=== PATIENT | female | born 1975 | race Caucasian/White ===

== ENCOUNTER 2016-05-08 11:35 | Observation (INO) | payer OTHER ==
[~2016-05-08] VITALS: Ht 165.1 cm; Wt 154.0 kg
[2016-05-08] VITALS (26 sets, daily range): BP systolic 93–151; BP diastolic 36–92; PULSE 64–100; RESP 12–29; Ht 165.1 cm; Wt 154.0 kg
[2016-05-08] MEDS ORDERED: CEFAZOLIN 2 GM/50 ML (PMX) 50 ML IVPB ONE (13:30)
[2016-05-08] MEDS ORDERED: SOD CHLORIDE 0.9% 1,000 ML IV ONE (13:30)
[2016-05-08] MEDS ORDERED: METF500T4 PO (14:13)
[2016-05-08] MEDS ORDERED: IBUP100O10 PO (14:13)
[2016-05-08] MEDS ORDERED: GABA300C16 PO (14:13)
[2016-05-08] MEDS ORDERED: HYDR-3027 PO (14:16)
[2016-05-08] MEDS ORDERED: BUPIVACAINE 0.25% (MPF) 30 ML INJ ONE (14:57)
[2016-05-08] MEDS ORDERED: MIDAZOLAM 1 MG/ML 2 ML INJ ONE (15:05)
[2016-05-08] MEDS ORDERED: PROPOFOL 40 ML ONE (15:13)
[2016-05-08] MEDS ORDERED: GLYCOPYRROLATE 0.4 MG INJ ONE (15:13)
[2016-05-08] MEDS ORDERED: ROCURONIUM 50 MG INJ ONE (15:13)
[2016-05-08] MEDS ORDERED: LIDOCAINE 2% (SDV) 5 ML INJ ONE (15:13)
[2016-05-08] MEDS ORDERED: NEOSTIGMINE 3 MG/3 ML SYRINGE ONE (15:13)
[2016-05-08] MEDS ORDERED: MEPERIDINE 25 MG INJ IV PRN (15:30)
[2016-05-08] MEDS ORDERED: DIPHENHYDRAMINE 50 MG INJ IV PRN (15:30)
[2016-05-08] MEDS ORDERED: FENTAnyl 50 MCG/ML VIAL IV PRN (15:30)
[2016-05-08] MEDS ORDERED: morphine (1 MG/ML) 10ML SYRINGE IV PRN (15:30)
[2016-05-08] MEDS ORDERED: ONDANSETRON 4 MG INJ IV PRN (15:30)
[2016-05-08] MEDS ORDERED: CEFAZOLIN 1 GM INJ ONE (16:14)
[2016-05-08] MEDS ORDERED: ONDANSETRON 4 MG INJ ONE (16:15)
[2016-05-08] MEDS: morphine (1 MG/ML) 10ML SYRINGE IV PRN ×4 (16:31→17:00)
[2016-05-08] MEDS: CEFAZOLIN 2 GM/50 ML (PMX) 50 ML IVPB SCH ×2 (16:54→23:18)
[2016-05-08 17:26] LABS: ADD SCAN DIFF NO
[2016-05-08 17:29] LABS: BASOPHILS % 0.3 % (0.0-2.0); EOSINOPHILS # 0.2 10^3/ul (0.0-0.5); HEMOGLOBIN 12.7 g/dl (12.0-16.0); LYMPHOCYTES # 4.2 10^3/ul (0.8-2.9); LYMPHOCYTES % 27.1 % (15.0-51.0); MEAN CORPUSCULAR HEMOGLOBIN 28.6 pg (29.0-33.0); MEAN CORPUSCULAR VOLUME 92.3 fl (82.0-101.0); MONOCYTE # 0.8 10^3/ul (0.3-0.9); MONOCYTES % 5.2 % (0.0-11.0); NEUTROPHIL # 10.3 10^3/ul (1.6-7.5); PLATELET COUNT 270 10^3/UL (140-415); RED BLOOD COUNT 4.44 10^6/ul (4.20-5.40); RED CELL DISTRIBUTION WIDTH 13.5 % (11.5-14.5); WHITE BLOOD COUNT 15.6 10^3/ul (4.8-10.8)
[2016-05-08 17:46] LABS: ALBUMIN 3.7 g/dl (3.3-4.9)
[2016-05-08 17:49] LABS: ALBUMIN/GLOBULIN RATIO 1.19; TOTAL PROTEIN 6.8 g/dl (6.1-8.1)
[2016-05-08 17:50] LABS: POTASSIUM 3.8 mmol/L (3.5-5.1)
[2016-05-08 17:57] LABS: CALCIUM 8.5 mg/dl (8.4-10.2)
[2016-05-08] MEDS ORDERED: ACETAMINOPHEN 325 MG TAB PO PRN (18:00)
[2016-05-08 18:05] LABS: CREATININE 0.67 mg/dl (0.44-1.00)
--- NOTE | 2016-05-08 18:59 | OPR ---
DATE OF OPERATION: 05/08/2016 INDICATION: This is a 40-year-old female presenting and symptomatic gallstones. She requests surgi stephanie excision. Risks, alternatives, benefits, and personnel were discussed with the patient. The alejandra chand expressed understanding and consents to the operation. PREOPERATIVE DIAGNOSIS: Symptomatic gallstones. POSTOPERATIVE DIAGNOSIS: Symptomatic gallstones. OPERATION: Laparoscopic cholecystectomy. SURGEON: Alejandro Barbour MD SHIP RIGGER APPRENTICE: Barney Rodriguez MD SPECIMENS: Gallbladder. COMPLICATIONS: None. ANESTHESIA: General. PROCEDURE: The patient was taken to the OR and prepped and draped in usual sterile fashion. Surgic al timeout was performed. IV antibiotics were given. Supraumbilical midline incision was made with a 15 blade. Dissection cautery was carried down to the fascia. The 0 Vicryl stay sutures were jessica cassie on either side of the midline. Midline opened with cautery. Balloon Luna trocar was introduc ed. Pneumoperitoneum established. Midepigastric 12 mm optical trocar. Right upper quadrant, right upper flank 5 mm optical trocars are placed under direct visualization. There were some adhesions to the gallbladder, which was taken down bluntly. The gallbladder was intrahepatic. Dome down appr oach was taken down until the cystic duct and artery were identified. Three fires of the [address] [place] vascular stapler were used to get across the cystic duct. There was good hemostasis. Additional c lips were placed for reinforcement. Gallbladder was taken off the gallbladder bed. There was minim al spillage. Suction irrigation was used. There was good hemostasis. Additional SNoW and Surgicel were placed into the gallbladder fossa due to the large raw surface. Gallbladder was retrieved usi ng EndoCatch bag. Ports were removed under direct visualization. Stay sutures were tied down. Ski n was closed using skin shashi. Local anesthesia was injected. Dry dressings were applied. Dictated By: ALEJANDRO BARBOUR MD SB/NTS Conf#: [id number] DID#: [id number] CC: SIS ARORA MD;*EndCC*
[2016-05-08] MEDS: HYDROCODONE/APAP (5/325) TAB PO PRN (20:16)
[2016-05-08] MEDS: LACTATED RINGER'S 1,000 ML IV SCH (20:16)
--- NOTE | 2016-05-08 20:52 | HP ---
DATE OF ADMISSION: 05/08/2016 CHIEF COMPLAINT AND HISTORY OF PRESENT ILLNESS: The patient is a 40-year-old female with history o f recurrent right upper quadrant pain, was seen by Dr. Capps as an outpatient. The patient underwent the abdomen on 04/16/2016, which revealed cholelithiasis and probable hepatic steatosis. The patient is morbidly obese and the patient did have a history of recurrent right upper quadrant pain and brought into the hospital today and underwent laparoscopic cholecystectomy. The patient did hav e significant postoperative pain and is being admitted for further evaluation and management. The p atient denied any chest pain. No reported shortness of breath. No reported vomiting. The patient was slightly nauseated, but no ____, no leg pain, or rash or leg edema. No numbness, tingling, or w eakness in any extremity. REVIEW OF SYSTEMS: Other than postoperative pain, the rest of review of systems was unremarkable. ALLERGIES: THE PATIENT IS ALLERGIC TO BACTRIM. FAMILY HISTORY: Paternal grandfather had lung cancer and father is diabetic. PAST SURGICAL HISTORY: The patient is status post left knee arthroscopic surgery and also C-spine s urgery. PAST MEDICAL HISTORY: Significant for diet-controlled diabetes. As mentioned, the patient is morbi dly obese. The patient's last recorded weight is 346 pounds. PHYSICAL EXAMINATION: GENERAL: The patient is conscious, awake, alert. VITAL SIGNS: Temperature 99.2, pulse 92, respirations 20, blood pressure 140/57, O2 saturation 94% on room air. HEENT: Conjunctivae and lids are normal. Oropharynx clear. NECK: Supple. No mass, no thyromegaly. CHEST: Fairly clear. CARDIOVASCULAR: S1, S2 normal. No murmur. ABDOMEN: The patient is status post laparoscopic cholecystectomy. EXTREMITIES: No leg edema. Pedal pulses palpable. SKIN: Without acute rash. NEUROLOGIC: The patient is awake, follows simple commands. LABORATORY DATA: WBC 15.6, hemoglobin 12.7, platelet 270. Chemistry is pending. Glucose 91. The preop chemistry revealed sodium 141, potassium 4.5, BUN 22, creatinine 0.7, glucose 94. IMPRESSION: 1. Symptomatic cholelithiasis, status post laparoscopic cholecystectomy. 2. Diet-controlled diabetes. 3. Morbid obesity. PLAN: 1. Patient admitted on medical floor. Patient will be started on clear liquid diet, which will be advanced as tolerated. Patient will be given IV fluid and will be given Tylenol, morphine and [place] for pain control based on severity of the pain. 2. Will start Lovenox for tomorrow for DVT prophylaxis. Meanwhile, continue SCD. 3. Will also encourage use of incentive spirometry. Further recommendations will depend on patient's hospital course. We will do followup labs. Dictated By: SIS BRADLEY/KATHY Conf#: [id number] DID#: [id number]
[2016-05-09] MEDS: HYDROCODONE/APAP (5/325) TAB PO PRN ×3 (01:56→19:02)
[2016-05-09] MEDS: LACTATED RINGER'S 1,000 ML IV SCH ×2 (02:18→08:25)
[2016-05-09] MEDS: morphine 2 MG INJ IV PRN ×4 (04:09→13:43)
[2016-05-09 05:00] VITALS: BP 148/70; PULSE 81; RESP 19
[2016-05-09 05:03] LABS: ADD SCAN DIFF NO
[2016-05-09 05:14] LABS: BASOPHILS % 0.2 % (0.0-2.0); EOSINOPHILS % 0.1 % (0.0-7.0); HEMATOCRIT 39.2 % (37.0-47.0); HEMOGLOBIN 12.5 g/dl (12.0-16.0); LYMPHOCYTES # 2.3 10^3/ul (0.8-2.9); LYMPHOCYTES % 17.2 % (15.0-51.0); MEAN CORPUSCULAR HEMOGLOBIN 28.9 pg (29.0-33.0); MEAN CORPUSCULAR HGB CONC 31.9 g/dl (32.0-37.0); MEAN CORPUSCULAR VOLUME 90.7 fl (82.0-101.0); MEAN PLATELET VOLUME 9.7 fl (7.4-10.4); MONOCYTE # 0.7 10^3/ul (0.3-0.9); MONOCYTES % 5.4 % (0.0-11.0); NEUTROPHIL # 10.1 10^3/ul (1.6-7.5); NEUTROPHILS % 76.6 % (39.0-77.0); PLATELET COUNT 290 10^3/UL (140-415); RED BLOOD COUNT 4.32 10^6/ul (4.20-5.40); RED CELL DISTRIBUTION WIDTH 13.3 % (11.5-14.5); WHITE BLOOD COUNT 13.2 10^3/ul (4.8-10.8)
[2016-05-09 05:36] LABS: ALBUMIN 3.8 g/dl (3.3-4.9); BILIRUBIN,INDIRECT 0.3 mg/dl (0-1.1); BILIRUBIN,TOTAL 0.3 mg/dl (0.2-1.3); CREATININE 0.71 mg/dl (0.44-1.00)
[2016-05-09 05:52] LABS: CALCIUM 8.9 mg/dl (8.4-10.2); TOTAL PROTEIN 7.6 g/dl (6.1-8.1)
[2016-05-09] MEDS: CEFAZOLIN 2 GM/50 ML (PMX) 50 ML IVPB SCH (08:29)
[2016-05-09 08:50] VITALS: BP 140/81; RESP 20
[2016-05-09] MEDS ORDERED: ENOXAPARIN 40 MG/0.4 ML SYG SC SCH (09:00)
--- NOTE | 2016-05-09 14:28 | PN ---
Date/Time of Note Date/Time of Note DATE: 05/09/16 TIME: 14:27 Assessment/Plan VTE Prophylaxis VTE Prophylaxis Intervention: SCD's Lines/Catheters IV Catheter Type (from Nrs): Peripheral IV Assessment/Plan Chief Complaint/Hosp Course s/p lap dalila Problems: Assessment/Plan dc home f/u in 2 weeks Subjective 24 Hr Interval Summary Free Text/Dictation doing well, no issues Exam/Review of Systems Vital Signs Vitals Vital Signs Date Time Temp Pulse Resp B/P Pulse Ox O2 Delivery O2 Flow Rate FiO2 05/09/16 08:50 98.2 85 20 140/81 96 05/09/16 05:00 Nasal Cannula 2.0 Intake and Output 05/08/16 05/08/16 05/09/16 15:00 23:00 07:00 Intake Total 1000 ml 2150 ml Output Total 50 ml 2200 ml Balance 950 ml -50 ml Exam clean dry intact Results Result Diagram: 05/09/16 0436 05/09/16 0436 Results 24 hrs Laboratory Tests Test 05/08/16 16:50 05/08/16 20:20 05/09/16 04:36 05/09/16 08:27 Alanine Aminotransferase (ALT/SGPT) 78 H 90 H Albumin 3.7 3.8 Albumin/Globulin Ratio 1.19 1.00 Alkaline Phosphatase 95 86 Anion Gap 18 H 16 Aspartate Amino Transf (AST/SGOT) 71 H 87 H Basophils # 0.0 0.0 Basophils % 0.3 0.2 Blood Urea Nitrogen 15 12 Calcium Level 8.5 8.9 Carbon Dioxide Level 25 28 Chloride Level 105 103 Creatinine 0.67 0.71 Direct Bilirubin 0.00 0.00 Eosinophils # 0.2 0.0 Eosinophils % 1.0 0.1 Globulin 3.10 3.80 H Glucose Level 117 107 Hematocrit 41.0 39.2 Hemoglobin 12.7 12.5 Indirect Bilirubin 0.0 0.3 Lymphocytes # 4.2 H 2.3 Lymphocytes % 27.1 17.2 Mean Corpuscular Hemoglobin 28.6 L 28.9 L Mean Corpuscular Hemoglobin Concent 31.0 L 31.9 L Mean Corpuscular Volume 92.3 90.7 Mean Platelet Volume 10.0 9.7 Monocytes # 0.8 0.7 Monocytes % 5.2 5.4 Neutrophils # 10.3 H 10.1 H Neutrophils % 66.0 76.6 Nucleated Red Blood Cells # 0.0 0.0 Nucleated Red Blood Cells % 0.0 0.0 Platelet Count 270 290 Potassium Level 3.8 4.0 Red Blood Count 4.44 4.32 Red Cell Distribution Width 13.5 13.3 Sodium Level 144 143 Total Bilirubin 0.0 L 0.3 Total Protein 6.8 7.6 White Blood Count 15.6 H 13.2 H Bedside Glucose 134 108 Test 05/09/16 12:15 Bedside Glucose 116 Medications Medications Current Medications Cefazolin Sodium/ Dextrose (Ancef 2 Gm/50 ml (Pmx)) 50 ml @ 100 mls/hr Q8H IVPB Last administered on 05/09/16 08:29; Admin Dose 100 MLS/HR; Start at 16:30; Stop 05/09/16 at 16:29 Morphine Sulfate (morphine) 2 mg Q2H PRN IV PAIN LEVEL 6-10 Last administered on 05/09/16 13:43; Admin Dose 2 MG; Start 05/08/16 at 16:30 Acetaminophen/ Hydrocodone Bitart 1 tab 1 tab Q6H PRN PO PAIN LEVEL 6-10 Last administered on 05/09/16 11:44; Admin Dose 1 TAB; Start 05/08/16 at 16:30 Lactated Ringer's (Lr) 1,000 ml @ 100 mls/hr Q10H IV Last administered on 05/09 08:25; Admin Dose 100 MLS/HR; Start 05/08/16 at 16:18 Enoxaparin Sodium (Lovenox) 40 mg DAILY SC Last administered on 05/09/16 08:35 ; Admin Dose 40 MG; Start 05/09/16 at 09:00 Acetaminophen (Tylenol Tab) 650 mg Q4H PRN PO PAIN AND OR ELEVATED TEMP; Start 05/08/16 at 18:00 Cecile BARBOUR May 09, 2016 14:28
[2016-05-09] MEDS ORDERED: HYDR-3498 PO (17:22)
== END 2016-05-09 19:30 | disposition home or self-care (01) ==
LOC: SDS 11:35 → MS1 16:20
PROVIDERS: ADMIT Internal Medicine; ATTEND Surgery
DX: K80.10 Calculus of gallbladder with chronic cholecystitis without obstruction (principal); E11.9 Type 2 diabetes mellitus without complications; E66.01 Morbid (severe) obesity due to excess calories; Z68.43 Body mass index [BMI] 50.0-59.9, adult
CPT/HCPCS: 47562; 80053; 82962; 84703; 85025; 88304; 96361; 96365; 96372; 96374; 96375; 96376; J0690; J1200; J1650; J2175; J2250; J2270; J2405; J2710; J3010; J7120; Z7500; Z7512; Z7610; G0378